=== PATIENT | male | born 1960 ===

== ENCOUNTER 2017-12-15 11:56 | Emergency (ER) | payer OTHER ==
[2017-12-15 12:41] VITALS: BP 142/88; PULSE 99; RESP 16; TEMP 98.5; O2SAT 99
--- NOTE | 2017-12-15 12:56 | ED PDOC ---
HPI: Back Time Seen by Provider: 12/15/17 12:23 Chief Complaint (Nursing): Back Pain Chief Complaint (Provider): Back Pain History Per: Patient History/Exam Limitations: no limitations Onset/Duration Of Symptoms: Days (x3) Current Symptoms Are (Timing): Still Present Additional Complaint(s): 57 year old male with medical history of arthritis, presents to the emergency department with a complaint of left-sided lower back pain radiating down to left leg associated with burning and tingling sensation ongoing for 3 days. Denied any fever, chills, nausea, vomiting, urinary issues, diarrhea or constipation. Patient reported taking Oxicodone and local massaging helps alleviate pain. PMD: Rosa Parikh MD Past Medical History Reviewed: Historical Data, Nursing Documentation, Vital Signs Vital Signs: Last Vital Signs Temp 98.5 F 12/15/17 12:32 Pulse 99 H 12/15/17 12:32 Resp 16 12/15/17 12:32 BP 142/88 12/15/17 12:32 Pulse Ox 99 12/15/17 12:32 - Medical History PMH: Arthritis, Hypothyroidism, Kidney Stones (2001) - Surgical History Surgical History: Denies: No Surg Hx Other surgeries: left hip - Family History Family History: States: Unknown Family Hx - Social History Current smoker - smoking cessation education provided: No Alcohol: None Drugs: Denies - Home Medications Home Medications: Ambulatory Orders Medication Instructions Recorded Cyclobenzaprine [Cyclobenzaprine 10 mg PO Q8H #20 tab 12/15/17 HCl] Methylprednisolone [Medrol] 4 mg PO TITR #1 unit 12/15/17 - Allergies Allergies/Adverse Reactions: Allergies Allergy/AdvReac Type Severity Reaction Status Date / Time turkey Allergy NAUSEA Verified 12/15/17 12:37 Review of Systems ROS Statement: Except As Marked, All Systems Reviewed And Found Negative Constitutional: Negative for: Fever, Chills Gastrointestinal: Negative for: Nausea, Vomiting, Diarrhea, Constipation Genitourinary Male: Negative for: Dysuria, Incontinence, Hematuria Musculoskeletal: Positive for: Back Pain (lower left), Leg Pain (left-sided with burning and tingling sensation) Physical Exam - Reviewed Nursing Documentation Reviewed: Yes Vital Signs Reviewed: Yes - Physical Exam Appears: Positive for: Non-toxic, No Acute Distress Head Exam: Positive for: ATRAUMATIC, NORMAL INSPECTION, NORMOCEPHALIC Skin: Positive for: Normal Color. Negative for: Pallor Eye Exam: Positive for: Normal appearance, EOMI, PERRL Back: Positive for: Other (tenderness on palpation to left SI joint). Negative for: L CVA Tenderness, R CVA Tenderness, Decreased ROM Extremity: Positive for: Normal ROM (lower), Other (sensation intact). Negative for: Pedal Edema (bilateral) Neurologic/Psych: Positive for: Alert, Oriented. Negative for: Motor/Sensory Deficits - ECG O2 Sat by Pulse Oximetry: 99 (RA) Pulse Ox Interpretation: Normal Medical Decision Making Medical Decision Making: Initial Impression: Sciatica pain Initial Plan: * Xray hip (left) * Flexeril 10mg * Solu-medrol 125mg IM No abnormalities of the left hip sen on x-ray. Pt reports feeling better on re-evaluation. Scribe Attestation: Documented by Junie Contreras, acting as a scribe for Trixie Stephenson PA-C. Provider Scribe Attestation: All medical record entries made by the Scribe were at my direction and personally dictated by me. I have reviewed the chart and agree that the record accurately reflects my personal performance of the history, physical exam, medical decision making, and the department course for this patient. I have also personally directed, reviewed, and agree with the discharge instructions and disposition. Disposition - Clinical Impression Clinical Impression: Sciatica - Patient ED Disposition Is Patient to be Admitted: No Counseled Patient/Family Regarding: Diagnosis, Need For Followup, Rx Given - Disposition Disposition: Routine/Home Disposition Time: 14:07 Condition: GOOD Prescriptions: Cyclobenzaprine [Cyclobenzaprine HCl] 10 mg PO Q8H #20 tab Methylprednisolone [Medrol] 4 mg PO TITR #1 unit Instructions: Sciatica (DC) Forms: [facility] [facility] ([place])
--- NOTE | 2017-12-15 14:17 | RAD ---
PROCEDURE: Left Hip X-ray Radiographs. AP view of the pelvis and AP/frogleg lateral views of the left hip performed. HISTORY: Left SI joint pain. History of hip replacement COMPARISON: No prior FINDINGS: BONES: Current study demonstrates left total hip replacement. The left femoral head is appropriately located within the acetabular component. Hardware appears intact without evidence of loosening or infection. No evidence acute displaced fracture nor dislocation. Degenerative osteoarthritis right hip with subchondral sclerosis. There is also prominent subchondral cystic changes along the femoral head. SI joints appear intact. JOINTS: Normal. SOFT TISSUES: Normal. OTHER FINDINGS: None. IMPRESSION: Left total hip replacement. Hardware is intact appropriately located without evidence of failure. No acute fractures. Moderate degenerative osteoarthritis right hip with subchondral sclerosis. There is also prominent subchondral cystic changes femoral head
== END 2017-12-15 14:32 | disposition home or self-care (01) ==
LOC: H.ER 11:56
DX: M54.32 Sciatica, left side (principal); E03.9 Hypothyroidism, unspecified; M16.11 Unilateral primary osteoarthritis, right hip; Z96.642 Presence of left artificial hip joint
CPT/HCPCS: 73502; 96372; 99281; J2930